=== PATIENT | female | born 1980 | race Two or more races ===

== ENCOUNTER → 2016-12-13 | Outpatient (CLI) | payer BC ==
--- NOTE | 2016-12-13 17:15 | US ---
EXAMINATION TYPE: US thyroid st tissue head/neck DATE OF EXAM: 12/13/2016 COMPARISON: NONE CLINICAL HISTORY: E04.1 Thyroid Nodule. GLAND SIZE: Right Lobe: 5.2 x 2.7 x 2.3 cm Overall Parenchyma: heterogenous Left Lobe: 6.1 x 2.3 x 2.4 cm Overall Parenchyma: heterogeneous Isthmus Thickness: 0.7 cm NODULES RIGHT: # of nodules measured on right: 0 LEFT: # of nodules measured on left: 1 1. 0.8 X 0.6 x 0.7 cm cystic nodule at the mid pole with well-defined margins; . This nodule is wi becca than tall and shows no intranodular vascularity. Prior size: 0.7 x 0.5 x 0.7 cm ISTHMUS: # of nodules measured in the isthmus: 0 Bilateral neck scanned, lymph nodes noted left neck with largest = 1.7 x 1.1 x 1.0cm. Enlarged, heterogenous thyroid gland. cystic area left lobe IMPRESSION: 1. Stable left lobe cystic subcentimeter nodule. 2. Lymph nodes within the left neck, the largest noted above.
== END | disposition home or self-care (01) ==
LOC: RADUSWWP 16:09
PROVIDERS: ATTEND Family Medicine
DX: E04.1 Nontoxic single thyroid nodule (principal)
CPT/HCPCS: 76536

== ENCOUNTER → 2017-03-10 | Outpatient (CLI) | payer BC ==
--- NOTE | 2017-03-10 11:06 | US ---
EXAMINATION TYPE: US thyroid st tissue head/neck DATE OF EXAM: 03/10/2017 COMPARISON: 2017 CLINICAL HISTORY: I88.9 Nonspecific lymphadenitis, Unspecified. GLAND SIZE: Right Lobe: 5.7 x 2.2 x 2.5 cm Overall Parenchyma: heterogenous Left Lobe: 5.4 x 2.4 x 2.6 cm Overall Parenchyma: heterogeneous Isthmus Thickness: 0.9 cm NODULES RIGHT: # of nodules measured on right: 1 1. 0.6 X 0.5 x 0.4 cm echogenic nodule at the medial pole with well-defined margins; . This nodule is round and shows no intranodular vascularity. Prior size: not seen LEFT: # of nodules measured on left: 1 1. 0.7 X 0.6 x 0.7 cm cystic nodule at the mid pole with well-defined margins; . This nodule is wi becca than tall and shows no intranodular vascularity. Prior size: 0.8 x 0.6 x 0.7 cm ISTHMUS: # of nodules measured in the isthmus: 0 Bilateral neck scanned, no evidence of lymphadenopathy. Left neck small lymph node 1 x 1.4 x 0.8 cm stable pt went on antibiotics in december IMPRESSION: Thyroid heterogeneity and enlargement with underlying areas of nodularity which are nonspecific. Adrian elate for underlying goiter.
== END | disposition home or self-care (01) ==
LOC: RADUSWWP 09:26
PROVIDERS: ATTEND Family Medicine
DX: E04.2 Nontoxic multinodular goiter (principal); I88.9 Nonspecific lymphadenitis, unspecified
CPT/HCPCS: 76536

== ENCOUNTER → 2017-03-10 | Outpatient (CLI) | payer BC ==
--- NOTE | 2017-03-15 09:13 | MM ---
Reason for exam: screening (asymptomatic). Baseline mammogram. History: Patient had first child at age 29. Physical Findings: Nurse did not find any significant physical abnormalities on exam. MG Screening Mammo w CAD Bilateral CC and MLO view(s) were taken. There are scattered fibroglandular densities. No suspicious calcifications are seen. Focal asymmetry in the upper outer left breast. These results were verbally communicated with the patient and result sheet given to the patient on 03/10/17. ASSESSMENT: Incomplete: need additional imaging evaluation, BI-RAD 0 RECOMMENDATION: Special view mammogram of the left breast. If lesion persists on supplemental views, image directed ultrasound is recommended. [facility] will attempt to contact patient to return for supplemental views and ultrasound if indicated.
--- NOTE | 2017-03-15 09:15 | MM ---
Reason for exam: additional evaluation requested from abnormal screening. History: Patient had first child at age 29. Physical Findings: Breast exam preformed at baseline screening. MG Work Up Mamm w CAD LT ML, XCCL, spot compression MLO, and spot compression CC view(s) were taken of the left breast. There is no discrete abnormality including area of concern. These results were verbally communicated with the patient and result sheet given to the patient on 03/10/17. ASSESSMENT: Probably benign, BI-RAD 3 RECOMMENDATION: Follow-up diagnostic mammogram of the left breast in 6 months.
== END | disposition home or self-care (01) ==
LOC: RADMAMWWP 09:15
PROVIDERS: ATTEND Obstetrics & Gynecology
DX: Z12.31 Encounter for screening mammogram for malignant neoplasm of breast (principal); R92.8 Other abnormal and inconclusive findings on diagnostic imaging of breast
CPT/HCPCS: G0202; G0206

== ENCOUNTER → 2018-07-14 | Outpatient (CLI) | payer BC ==
--- NOTE | 2018-07-15 16:33 | US ---
EXAMINATION TYPE: US thyroid st tissue head/neck DATE OF EXAM: 07/14/2018 COMPARISON: NONE CLINICAL HISTORY: E03.9 Hypothyroidism. Hypothyroidism, follow up nodules GLAND SIZE: Right Lobe: 6.2 x 3.1 x 2.7 cm Overall Parenchyma: heterogenous Left Lobe: 6.1 x 2.6 x 3.2 cm Overall Parenchyma: heterogeneous Isthmus Thickness: 0.9 cm NODULES RIGHT: # of nodules measured on right: 1 1. 0.7 X 0.6 x 0.6 cm echogenic solid nodule at the medial pole with well-defined margins; . This nodule is wider than tall and shows intranodular vascularity. Prior size: 0.6 x 0.5 x 0.4 cm LEFT: # of nodules measured on left: 1 1. 0.9 X 0.5 x 0.8 cm cystic nodule at the mid pole with well-defined margins; . This nodule is wi becca than tall and shows no intranodular vascularity. Prior size: 0.7 x 0.6 x 0.7 cm ISTHMUS: # of nodules measured in the isthmus: 0 Bilateral neck scanned, no evidence of abnormal lymphadenopathy. IMPRESSION: Subcentimeter thyroid nodules, heterogeneous gland suggestive of thyroiditis.
== END ==
LOC: RADUSMAIN 17:41
PROVIDERS: ATTEND Family Medicine
DX: E04.2 Nontoxic multinodular goiter (principal)
CPT/HCPCS: 76536

== ENCOUNTER → 2018-07-18 | Outpatient (CLI) | payer BC ==
[2018-07-18 13:28] LABS: Basophils % (A) 0 %; Eosinophils # (A) 0.3 k/uL (0-0.7); Eosinophils % (A) 3 %; HCT 35.2 % (34.0-46.0); HGB 10.8 gm/dL (11.4-16.0); Hypochromasia Moderate; Lymphocytes # (A) 2.9 k/uL (1.0-4.8); Lymphocytes % (A) 31 %; MCH 24.6 pg (25.0-35.0); MCHC 30.7 g/dL (31.0-37.0); MCV 80.1 fL (80.0-100.0); Monocytes # (A) 0.6 k/uL (0-1.0); Monocytes % (A) 6 %; Neutrophils # (A) 5.3 k/uL (1.3-7.7); Neutrophils % (A) 58 %; Platelet Count 312 k/uL (150-450); RDW 15.2 % (11.5-15.5); WBC 9.3 k/uL (3.8-10.6)
[2018-07-18 19:18] LABS: Albumin 4.2 g/dL (3.80-4.90); Albumin/Globulin Ratio 1.56 (1.20-2.10); Anion Gap 7.7 mmol/L (4.00-12.00); Calcium 8.6 mg/dL (8.7-10.3); Carbon Dioxide 26.3 mmol/L (21.6-31.8); Globulin 2.7 g/dL (1.6-3.3); Potassium 4.1 mmol/L (3.5-5.5); Total Bilirubin 0.2 mg/dL (0.2-1.2); Total Protein 6.9 g/dL (6.2-8.2)
[2018-07-18 19:23] LABS: T4, Free (Free Thyroxine) 0.9 ng/dL (0.80-1.80)
== END | disposition home or self-care (01) ==
LOC: LABWHC1 11:59
PROVIDERS: ATTEND Family Medicine
DX: E03.9 Hypothyroidism, unspecified (principal)
CPT/HCPCS: 36415; 80053; 84439; 84443; 85025; 86431

== ENCOUNTER → 2019-05-21 | Outpatient (CLI) | payer BC ==
--- NOTE | 2019-05-22 11:20 | MM ---
Reason for exam: screening (asymptomatic). Last mammogram was performed 2 years and 2 months ago. History: Patient had first child at age 29. Physical Findings: A clinical breast exam by your physician is recommended on an annual basis and results should be correlated with mammographic findings. MG 3D Screening Mammo W/Cad Bilateral CC and MLO view(s) were taken. Prior study comparison: March 10, 2017, left breast MG work up mamm w CAD LT. March 10, 2017, bilateral MG screening mammo w CAD. There are scattered fibroglandular densities. There is no discrete abnormality. No significant changes when compared with prior studies. ASSESSMENT: Negative, BI-RAD 1 RECOMMENDATION: Routine screening mammogram of both breasts in 1 year.
== END | disposition home or self-care (01) ==
LOC: RADMAMWWP 13:36
PROVIDERS: ATTEND Family Medicine
DX: Z12.31 Encounter for screening mammogram for malignant neoplasm of breast (principal)
CPT/HCPCS: 77063; 77067

== ENCOUNTER → 2019-07-16 | Outpatient (CLI) | payer BC ==
--- NOTE | 2019-07-16 11:55 | US ---
EXAMINATION TYPE: US thyroid st tissue head/neck DATE OF EXAM: 07/16/2019 COMPARISON: NONE CLINICAL HISTORY: E03.9 hypothyroidism, E61.1 Iron deficiency. Hashimottos GLAND SIZE: Right Lobe: 5.7 x 2.9 x 2.5 cm Overall Parenchyma: heterogenous Left Lobe: 6.1 x 2.7 x 3.1 cm Overall Parenchyma: heterogeneous Isthmus Thickness: .9 cm NODULES RIGHT: # of nodules measured on right: 0 Prior nodule not seen on todays study. LEFT: # of nodules measured on left: 1 1. .6 X .9 x .7 cm echogenic nodule at the lower pole with well-defined margins; . This nodule is taller than wide and shows intranodular vascularity. No prior size. ISTHMUS: # of nodules measured in the isthmus: 0 Bilateral neck scanned, no evidence of lymphadenopathy. IMPRESSION: Solitary subcentimeter hyperechoic left thyroid nodule in an otherwise enlarged and heter ogenous thyroid gland. This is too small for fine-needle aspiration at this time. Follow-up could be considered in 12 months for surveillance.
== END | disposition home or self-care (01) ==
LOC: RADUSWWP 11:05
PROVIDERS: ATTEND Family Medicine
DX: E04.1 Nontoxic single thyroid nodule (principal); E04.9 Nontoxic goiter, unspecified; E07.89 Other specified disorders of thyroid; E03.9 Hypothyroidism, unspecified; E61.1 Iron deficiency
CPT/HCPCS: 76536

== ENCOUNTER 2019-08-13 06:09 | Day surgery (SDC) | payer BC ==
[2019-08-08 15:45] VITALS: BMI 41.3
--- NOTE | 2019-08-10 12:45 | P.HPOB ---
History of Present Illness H&P Date: 08/10/19 Chief Complaint: Menorrhagia This patient is a pleasant 38-year-old 2 para 2 female who presented to my office for her yearly exam and requested endometrial ablation secondary to persistent menorrhagia. Patient's evaluation has included an ultrasound which was normal. Patient has 2 living children and has had a tubal ligation for control. Review of Systems Genitourinary: Reports menorrhagia Menstruation: Reports period heavy Past Medical History Past Medical History: Thyroid Disorder Additional Past Medical History / Comment(s): heavy menses,hypothyroidism History of Any Multi-Drug Resistant Organisms: None Reported Past Surgical History: Section, Tubal Ligation Additional Past Surgical History / Comment(s): c sect x2 Past Anesthesia/Blood Transfusion Reactions: No Reported Reaction Additional Past Anesthesia/Blood Transfusion Reaction / Comment(s): never has had general anesthesia or blood transfusion Past Psychological History: No Psychological Hx Reported Smoking Status: Never smoker Past Alcohol Use History: None Reported Past Drug Use History: None Reported - Past Family History Mother Family Medical History: No Reported History Medications and Allergies Home Medications Medication Instructions Recorded Confirmed Type Levothyroxine Sodium [Synthroid] 100 mcg PO QAM 06/25/14 08/08/19 History Cetirizine HCl [Zyrtec] 10 mg PO DAILY 08/08/19 08/08/19 History Cider Vinegar [Apple Cider Vinegar] 300 mg PO DAILY 08/08/19 08/08/19 History Ferrous Sulfate [Feosol] 325 mg PO DAILY 08/08/19 08/08/19 History Ibuprofen 800 mg PO Q8H PRN 08/08/19 08/08/19 History Multivitamins, Thera [Multivitamin 1 tab PO DAILY 08/08/19 08/08/19 History (formulary)] Ondansetron [Zofran] 4 mg PO DAILY PRN 08/08/19 08/08/19 History Allergies Allergy/AdvReac Type Severity Reaction Status Date / Time doxycycline Allergy severe Verified 08/08/19 15:34 abdominal cramping/diarrhea Penicillins Allergy Rash/Hives Verified 08/08/19 15:33 Exam - OBG Physical Exam Abdomen: bowel sounds normal, no diffuse tenderness, no bruit present, no guarding noted, no hepatomegaly, no splenomegaly, no mass Vulva: both: normal Vagina: normal moisture, no discharge Cervix: no lesion, no discharge Uterus: normal size, normal contour Assessment and Plan Assessment: This is a pleasant 38-year-old 2 para 2 female with long-standing menorrhagia who is requesting NovaSure endometrial ablation for treatment. Plan is hysteroscopy, D&C, and NovaSure endometrial ablation. Patient I discussed the surgery and risks including risks of infection, bleeding, possible uterine perforation, and/or thermal injury. All the patient's questions have been answered and a written consent is obtained. (1) Menorrhagia Status: Chronic Code(s): N92.0 - EXCESSIVE AND FREQUENT MENSTRUATION WITH REGULAR CYCLE SNOMED Code(s): 119273840
[~2019-08-13 06:09] MED LIST: DEXAMETHASONE SOD PHOSPHATE 10 MG/ML 1 ML VIAL IV ONE; HYDROmorphone 0.5 MG/0.5 ML SYRINGE IVP PRN; LACTATED RINGERS 1,000 ML IV SCH; MIDAZOLAM 2 MG/2 ML VIAL IV PRN; ONDANSETRON 4 MG/2 ML VIAL IVP ONE; Pre Op ABX Message 1 EACH MISC MISCELLANE ONE; SCOPOLAMINE 1.5MG/72HR PATCH TRANSDERM ONE
[2019-08-13] MEDS ORDERED: LIDOCAINE 1% 20 ML VIAL (10MG/ML) FOR IV START INTRADERMA ONE (06:35)
[2019-08-13] MEDS ORDERED: LIDOCAINE 1% INJ 10MG/ML (20 ML MDV) ONE (06:54)
[2019-08-13] MEDS ORDERED: PROPOFOL 10 MG/ML 20 ML VIAL IV ONE (06:54)
[2019-08-13] MEDS ORDERED: fentaNYL (PF) 50 MCG/ML 2 ML AMP ONE (06:54)
[2019-08-13] MEDS ORDERED: KETOROLAC 30 MG/ML 1 ML VIAL ONE (06:54)
[2019-08-13] MEDS ORDERED: MIDAZOLAM 2 MG/2 ML VIAL ONE (06:54)
[2019-08-13 07:40] VITALS: TEMP 98.6
--- NOTE | 2019-08-13 07:40 | P.OP ---
Date of Procedure: 08/13/19 Preoperative Diagnosis: Menorrhagia Postoperative Diagnosis: Same Procedure(s) Performed: #1: Hysteroscopy. #2: Dilation and curettage. #3: NovaSure endometrial ablation Anesthesia: other (LMA) Surgeon: Luis Enrique Duong Estimated Blood Loss (ml): 10 Urine output (ml): 20 Pathology: other (Uterine curettings) Condition: stable Disposition: PACU Indications for Procedure: Please see dictated H&P for intimate details of this patient's admission. Brief summary this is a pleasant 38-year-old 2 para 2 female long-standing menorrhagia requesting NovaSure endometrial ablation for treatment. Patient I discussed the surgery and risks including risks of infection, bleeding, possible uterine perforation, and/or thermal injury. All the patient's questions are answered and a written consent is obtained. Operative Findings: This patient is a normal appearing endometrial cavity without evidence of polyps, fibroids or other growths. Description of Procedure: This patient is taken to the operating room where she is laid in the supine position. She subsequently undergoes general anesthesia (LMA) without incident. With an adequate level of anesthesia she's placed in dorsal lithotomy position. She has a vaginal perineal prep and drape. Examination under anesthesia shows a mid position uterus of normal size. I first placed a weighted speculum posterior vagina. The bladder is drained for 20 mL of clear urine. I then grabbed the anterior lip of the cervix with an Allis clamp. The cervix is then gently sounded to 8 cm. Gentle dilation is then done to allow the hysteroscope easily uterine cavity. Using saline solution hysteroscopy is performed and the endometrial cavity appears normal as visualized. Hysteroscope was then removed. Cavity length was measured at 5.5 cm. With this done a small curette is easily placed in the uterine cavity and a gentle but thorough 4 quadrant curettage is done this tissue is sent off to pathology. With this completed the NovaSure device is then opened it appears to be intact. It is set at a length of 5.5 cm and opens up to a width of 3.6 cm. It is then enabled at a power of 109 W for 93 seconds. NovaSure device is then removed. It appears to be intact. Hysteroscopy again is performed and the uterine cavity appears to be ablated up to the endocervix. At this point the procedure is ended the Allis clamp and weighted speculum removed. All counts are correct 3. There are no complications. Patient is awakened from anesthesia and taken to the recovery room in satisfactory condition.
[2019-08-13 09:10] VITALS: BP 172/92; PULSE 75; RESP 20
== END 2019-08-13 08:44 | disposition home or self-care (01) ==
LOC: OR 06:09
PROVIDERS: ATTEND Obstetrics & Gynecology
DX: N92.0 Excessive and frequent menstruation with regular cycle (principal); N84.0 Polyp of corpus uteri; J30.2 Other seasonal allergic rhinitis; E07.9 Disorder of thyroid, unspecified; Z87.891 Personal history of nicotine dependence; Z79.890 Hormone replacement therapy; Z79.899 Other long term (current) drug therapy; Z88.0 Allergy status to penicillin; Z88.1 Allergy status to other antibiotic agents; Z98.891 History of uterine scar from previous surgery; E03.9 Hypothyroidism, unspecified; Z98.51 Tubal ligation status
CPT/HCPCS: 81025; 88305; 58563; J2250; J1100; J2405; J2001; J3010; J1885; J2704

== ENCOUNTER 2021-06-01 11:50 | Emergency (ER) | payer BC ==
[2021-06-01 14:25] VITALS: RESP 16
--- NOTE | 2021-06-01 16:53 | ED ---
General Adult HPI - General Chief complaint: Upper Respiratory Infection Stated complaint: Covid +, wants BAM Time Seen by Provider: 06/01/21 16:00 Source: patient, RN notes reviewed, old records reviewed Mode of arrival: ambulatory Limitations: no limitations - History of Present Illness Initial comments: Patient is a 40-year-old female with past medical history remarkable for hypothyroidism, endocrine disorders presents emergency Department seeking monoclonal antibody therapy for COVID-19. Patient was not vaccinated for COVID- 19. She to go home test today which was positive. Patient has been having symptoms for 4-5 days. She endorses upper respiratory mild cough, rhinorrhea. Denies loss of taste or smell. Has normal appetite. Denies emesis, diarrhea. Has no other acute complaints at this time. She is seeking monoclonal antibody therapy.I evaluated the patient when she was placed in a room. - Related Data Home Medications Medication Instructions Recorded Confirmed Cetirizine HCl [Zyrtec] 10 mg PO DAILY 08/08/19 06/01/21 Cider Vinegar [Apple Cider Vinegar] 600 mg PO DAILY 08/08/19 06/01/21 Acetaminophen [Tylenol Extra 500 mg PO Q6H PRN 06/01/21 06/01/21 Strength] L.acidoph,Paracasei, B.lactis 1 cap PO DAILY 06/01/21 06/01/21 [Probiotic] Levothyroxine Sodium [Synthroid] 100 mcg PO DAILY 06/01/21 06/01/21 Mv-Min/Vit C/Glut/Lysine/Hb124 1 tablet PO DAILY 06/01/21 06/01/21 [Immune Support Chewable Tablet] Mv-Mn/C/Glutamin/Lysin/Htwc082 2 tablet PO DAILY 06/01/21 06/01/21 [Airborne Gummies] Ondansetron Odt [Zofran Odt] 8 mg PO Q8HR PRN 06/01/21 06/01/21 Oxybutynin Chloride [Oxybutynin 10 mg PO DAILY 06/01/21 06/01/21 Chloride ER] Previous Rx's Medication Instructions Recorded Ibuprofen [Motrin] 600 mg PO Q6HR PRN #30 tab 08/13/19 Allergies Allergy/AdvReac Type Severity Reaction Status Date / Time doxycycline Allergy severe Verified 06/01/21 17:29 abdominal cramping/diarrhea Penicillins Allergy Rash/Hives Verified 06/01/21 17:29 Review of Systems ROS Statement: Those systems with pertinent positive or pertinent negative responses have been documented in the HPI. Review of Systems: CONST: Denies fever EYES: Denies blurry vision ENT: Endorses nasal congestion. C/V: Denies Chest pain RESP: Denies shortness of breath GI: Denies abdominal pain : Denies dysuria SKIN: Denies rash. MSK: Denies joint pain. NEURO: Denies headache ROS Other: All systems not noted in ROS Statement are negative. Past Medical History Additional Past Medical History / Comment(s): hypothyroidism, adrian Jackson History of Any Multi-Drug Resistant Organisms: None Reported Past Surgical History: Section, Tubal Ligation Past Psychological History: No Psychological Hx Reported Smoking Status: Former smoker Past Alcohol Use History: None Reported Past Drug Use History: None Reported General Exam - General Exam Comments Initial Comments: General: Appears in no acute distress. HEAD: Normal with no signs of head trauma. EYES: EOMI ENT: Hearing grossly intact, normal oropharynx. RESPIRATORY: Clear breath sounds bilaterally. No wheezes, rales, or rhonchi. C/V: Regular rate and rhythm. S1 and S2 auscultated, no edema, peripheral pulses 2+ and intact throughout ABD: Abd is soft, nontender, nondistended EXT: Normal range of motion, no obvious deformity SKIN: No rashes or lesions observed on exposed skin. NEURO: Alert and oriented 4. Limitations: no limitations Course Vital Signs 06/01/21 06/01/21 14:22 17:40 Temperature 98.4 F 98.6 F Pulse Rate 84 82 Respiratory 16 16 Rate Blood Pressure 190/97 162/99 O2 Sat by Pulse 98 100 Oximetry Medical Decision Making - Medical Decision Making Patient presents emergency Department requesting monoclonal antibody treatment for a positive home Covid test. She has no acute complaints. She is not hypoxic. She is not in respiratory distress. I do not believe that laboratory studies or imaging are required at this time. We will repeat Covid testing to ensure it is positive. Patient's Covid test is positive. She'll be administered monoclonal by therapy. Patient consented. Patient tolerated therapy well. No reactions. Patient will be discharged home. She was in agreement this plan. We discussed quarantine. I instructed the patient to follow up with their PCP in the next 3 days. I explained that the patient should return to the emergency department if they experience any worsening symptoms. Strict return precautions were discussed with the patient. The patient expressed understanding of these instructions. I answered all questions that the patient had. The patient was discharged home in good condition with their prescriptions and follow up information. - Lab Data Lab Results 06/01/21 Range/Units 16:22 Coronavirus (PCR) Detected A (Not Detectd) Disposition Clinical Impression: COVID-19 virus infection Disposition: HOME SELF-CARE Condition: Good Instructions (If sedation given, give patient instructions): Coronavirus Disease 2019 (COVID-19) Is patient prescribed a controlled substance at d/c from ED?: No Referrals: Jerman Kelly MD [Primary Care Provider] - 1-2 days
[2021-06-01] MEDS ORDERED: CASIRIVIMAB/IMDEVIMAB (EUA) 1,200 MG in SODIUM CHLORIDE 0.9% 100 ML IVPB ONE (17:00)
[2021-06-01] MEDS ORDERED: SODIUM CHLORIDE 0.9% 50 ML IVPB ONE (17:00)
[2021-06-01 17:41] VITALS: BP 162/99; PULSE 82; TEMP 98.6
== END 2021-06-01 18:10 | disposition home or self-care (01) ==
LOC: EC 11:50
DX: U07.1 COVID-19 (principal); E03.9 Hypothyroidism, unspecified; Z79.890 Hormone replacement therapy; Z88.8 Allergy status to other drugs, medicaments and biological substances; Z88.0 Allergy status to penicillin; Z87.891 Personal history of nicotine dependence
CPT/HCPCS: 87635; 99283; 96365; Q0243

== ENCOUNTER → 2023-04-06 | Outpatient (CLI) | payer BC ==
--- NOTE | 2023-04-06 12:39 | US ---
EXAMINATION TYPE: US thyroid st tissue head/neck DATE OF EXAM: 04/06/2023 COMPARISON: Thyroid ultrasound 07/16/2019, 07/14/2018 CLINICAL INDICATION: Female, 42 years old with history of E04.1 SINGLE THYROID NODULE; f/u Tamy GLAND SIZE: Right Lobe: 4.8 x 1.7 x 3.2 cm Overall Parenchyma: heterogenous Left Lobe: 6.1 x 2.4 x 2.6 cm Overall Parenchyma: heterogenous Isthmus Thickness: 1.1 cm NODULES RIGHT: # of nodules measured on right: 0 LEFT: # of nodules measured on left: 1 1. 1.6 X 1.5 x 1.2 cm, lower , solid or almost completely solid, hyperechoic nodule, which is talle r than wide, with smooth margins, without echogenic foci. TR 4. Prior size: 0.6 x 0.9 x 0.7 cm ISTHMUS: # of nodules measured in the isthmus: 0 Bilateral neck scanned, no evidence of lymphadenopathy. IMPRESSION: Diffusely heterogenous thyroid gland with increased size of left thyroid lobe 1.6 cm TR 4 nodule. Fin e-needle aspiration is recommended.
--- NOTE | 2023-04-07 20:37 | MM ---
Reason for Exam: Screening (asymptomatic). Last mammogram was performed 3 year(s) and 11 month(s) ago. Patient History: Menarche at age 11. First Full-Term at age 29. Late child-bearing (after 30). Risk Values: Nilsa 5 year model risk: 1.1%. NCI Lifetime model risk: 13.1%. Prior Study Comparison: 03/10/2017 Bilateral Screening Mammogram, [facility]. 03/10/2017 Left Diagnostic Mammogram, [facility]. 05/21/2019 Bilateral Screening Mammogram, [facility]. Tissue Density: There are scattered fibroglandular densities. Findings: Analyzed By CAD. In the left upper-outer quadrant, focal asymmetry appears more defined specially on MLO. Superimposition shadow is possible if further evaluation is recommended. No other significant change. Overall Assessment: Incomplete: need additional imaging evaluation, BI-RAD 0 Management: Special View Mammogram of the left breast. Diagnostic Breast Ultrasound of the left breast. Additional views to include spot 3-D CC, spot 3-D MLO, and 3-D lateral views. Targeted ultrasound for any persisting abnormality. [facility] will attempt to contact patient to return for supplemental views and ultrasound if indicated. Electronically signed and approved by: Tasneem Ledbetter M.D. Radiologist
== END | disposition home or self-care (01) ==
LOC: RADMAMWWP 11:56
PROVIDERS: ATTEND Family Medicine
DX: Z12.31 Encounter for screening mammogram for malignant neoplasm of breast (principal); E04.1 Nontoxic single thyroid nodule
CPT/HCPCS: 76536; 77063; 77067

== ENCOUNTER → 2023-04-15 | Outpatient (CLI) | payer BC ==
--- NOTE | 2023-04-15 10:53 | MM ---
Reason for Exam: Additional evaluation requested from abnormal screening. Last screening mammogram was performed less than 1 month ago. Patient History: Menarche at age 11. First Full-Term at age 29. Late child-bearing (after 30). Risk Values: Nilsa 5 year model risk: 1.1%. NCI Lifetime model risk: 13.1%. Prior Study Comparison: 03/10/2017 Left Diagnostic Mammogram, [facility]. 05/21/2019 Bilateral Screening Mammogram, [facility]. 04/06/2023 Bilateral MG 3D screening mammo w/cad, [facility]. Tissue Density: Left: The breast tissue is heterogeneously dense. This may lower the sensitivity of mammography. Findings: Analyzed By CAD. Asymmetric density upper outer left breast appears less conspicuous on additional views obtained however precautionary ultrasound is recommended. Overall Assessment: Incomplete: need additional imaging evaluation, BI-RAD 0 Management: Diagnostic Breast Ultrasound of the left breast. . Results were given to the patient verbally at the time of exam. Patient should continue monthly self-breast exams. A clinical breast exam by your physician is recommended on an annual basis. This exam should not preclude additional follow-up of suspicious palpable abnormalities. Note on Nilsa scores and lifetime risk: 1. A Nilsa score greater than 3% is considered moderate risk. If this is the case, consider specialist referral to assess eligibility for a risk reducing agent. 2. If overall lifetime risk for the development of breast cancer is 20% or higher, the patient may qualify for future screening with alternating mammogram and breast MRI. Electronically signed and approved by: Shekhar Simms M.D. Radiologis
--- NOTE | 2023-04-15 10:56 | USB ---
Reason for Exam: Additional evaluation requested from abnormal screening. Patient History: Menarche at age 11. First Full-Term at age 29. Late child-bearing (after 30). Risk Values: Nilsa 5 year model risk: 1.1%. NCI Lifetime model risk: 13.1%. Technique: Method: Targeted. Prior Study Comparison: 03/10/2017 Left Diagnostic Mammogram, [facility]. 05/21/2019 Bilateral Screening Mammogram, [facility]. 04/06/2023 Bilateral MG 3D screening mammo w/cad, [facility]. Findings: The upper outer quadrant of the left breast, the axilla of the left breast and the retroareolar of the left breast were scanned. No solid or cystic masses are identified. Overall Assessment: Probably benign, BI-RAD 3 Management: Diagnostic Mammogram of the left breast in 6 months. A clinical breast exam by your physician is recommended on an annual basis and results should be correlated with mammographic findings. This exam should not preclude additional follow-up of suspicious palpable abnormalities. Results were given to the patient verbally at the time of exam. Electronically signed and approved by: Shekhar Simms M.D. Radiologis
== END | disposition home or self-care (01) ==
LOC: RADMAMWWP 10:18
PROVIDERS: ATTEND Family Medicine
DX: R92.332 Mammographic heterogeneous density, left breast (principal)
CPT/HCPCS: 77061; 77065

== ENCOUNTER → 2024-01-06 | Outpatient (CLI) | payer BC ==
--- NOTE | 2024-01-06 10:39 | USB ---
Reason for Exam: Follow-up at short interval from prior study. Patient History: Menarche at age 11. First Full-Term at age 29. Late child-bearing (after 30). Risk Values: Nilsa 5 year model risk: 1.1%. NCI Lifetime model risk: 13.0%. Technique: Method: Targeted. Prior Study Comparison: 05/21/2019 Bilateral Screening Mammogram, [facility]. 04/06/2023 Bilateral MG 3D screening mammo w/cad, [facility]. 04/15/2023 Left MG 3D work up w/cad LT, [facility]. Findings: The upper outer quadrant of the left breast, the axilla of the left breast and the retroareolar of the left breast were scanned. Targeted ultrasound upper outer quadrant left breast including scanning of the subareolar region and axilla. Dense tissues are redemonstrated in the upper outer quadrant. No solid or cystic lesion or axillary lymphadenopathy. Overall Assessment: Probably benign, BI-RAD 3 Management: Diagnostic Mammogram of both breasts in 6 months. Total one-year follow-up left breast and annual exam of the right breast. A clinical breast exam by your physician is recommended on an annual basis and results should be correlated with mammographic findings. This exam should not preclude additional follow-up of suspicious palpable abnormalities. Results were given to the patient verbally at the time of exam. Electronically signed and approved by: Tasneem Ledbetter M.D. Radiologist
--- NOTE | 2024-01-12 12:03 | MM ---
Reason for Exam: Follow-up at short interval from prior study. Last screening mammogram was performed 9 month(s) ago. Patient History: Menarche at age 11. First Full-Term at age 29. Late child-bearing (after 30). Risk Values: Nilsa 5 year model risk: 1.1%. NCI Lifetime model risk: 13.0%. Prior Study Comparison: 05/21/2019 Bilateral Screening Mammogram, [facility]. 04/06/2023 Bilateral MG 3D screening mammo w/cad, [facility]. 04/15/2023 Left MG 3D work up w/cad , [facility]. Tissue Density: Left: The breasts are heterogeneously dense, which may obscure small masses. Findings: Analyzed By CAD. Upper-outer quadrant global asymmetry remains unchanged for 6 months, more pronounced compared to older priors. Repeat ultrasound to reassess this area. Overall Assessment: Incomplete: need additional imaging evaluation, BI-RAD 0 Management: Diagnostic Breast Ultrasound of the left breast. Electronically signed and approved by: Tasneem Ledbetter M.D. Radiologist
== END | disposition home or self-care (01) ==
LOC: RADMAMWWP 09:53
PROVIDERS: ATTEND Family Medicine
DX: R92.332 Mammographic heterogeneous density, left breast (principal); R92.8 Other abnormal and inconclusive findings on diagnostic imaging of breast
CPT/HCPCS: 77061; 77065

== ENCOUNTER → 2024-08-29 | Outpatient (CLI) | payer BC ==
--- NOTE | 2024-08-29 08:06 | MM ---
Reason for Exam: Follow-up at short interval from prior study. Last mammogram was performed 1 year(s) and 4 month(s) ago. Patient History: Menarche at age 11. First Full-Term at age 29. Late child-bearing (after 30). Risk Values: Nilsa 5 year model risk: 1.1%. NCI Lifetime model risk: 13.0%. Tissue Density: There are scattered areas of fibroglandular density. Findings: Analyzed By CAD. Area of concern/asymmetry compresses out on spot compression imaging. No suspicious masses, calcifications or distortions. Overall Assessment: Benign, BI-RAD 2 Management: Screening Mammogram of both breasts in 1 year. Results were given to the patient verbally at the time of exam. Patient should continue monthly self-breast exams. A clinical breast exam by your physician is recommended on an annual basis. This exam should not preclude additional follow-up of suspicious palpable abnormalities. Note on Nilsa scores and lifetime risk: 1. A Nilsa score greater than 3% is considered moderate risk. If this is the case, consider specialist referral to assess eligibility for a risk reducing agent. 2. If overall lifetime risk for the development of breast cancer is 20% or higher, the patient may qualify for future screening with alternating mammogram and breast MRI. [facility], , 08/29/2024 8:01 AM. Electronically signed and approved by: Joreg Sosa DO
--- NOTE | 2024-09-01 14:36 | MR ---
EXAMINATION TYPE: MR brain and iac wo/w con DATE OF EXAM: 08/29/2024 9:33 AM COMPARISON: None. CLINICAL INDICATION: Female, 44 years old with history of H93.11 tinnitus, Tinnitus, hx of Jacobs's Pal sy. TECHNIQUE: Multiplanar, multiecho imaging on a 3.0 Beth magnet is performed through the brain. Stud y is performed within 24 hours of arrival to the hospital.Multiplanar, multiecho imaging on a 3.0 Rose la magnet is performed through the brain. IV Contrast: 9 mL Gadobutrol (None, if empty) FINDINGS: The craniovertebral junction is normal. The pituitary is normal. Optic chiasm appears normal. Diffusion-weighted imaging is performed. No abnormal hyperintensity is present to suggest an acute i ntracranial infarct or acute ischemic change. There are scattered punctate areas of hyperintensity on T2 and Inversion Recovery weighted sequences which are non-specific but can be related to microvascular ischemic changes. Dedicated images are performed through the internal auditory canals. No expansion or erosion is evide nt. No cerebellar pontine angle masses are evident. No abnormal enhancement is evident Ventricles and sulci are appropriate for the patient age. IMPRESSION: 1. 1. No suspicious acute intracranial process. 2. No internal auditory canal abnormality to account for patient's symptoms [facility], , 09/01/2024 2:34 PM
== END | disposition home or self-care (01) ==
LOC: RADMAMWWP 07:42
PROVIDERS: ATTEND Family Medicine
DX: R92.8 Other abnormal and inconclusive findings on diagnostic imaging of breast (principal); H93.11 Tinnitus, right ear; R92.323 Mammographic fibroglandular density, bilateral breasts
CPT/HCPCS: 77066; 77062; 70553; A9585